=== PATIENT | female | born 1960 | race Caucasian/White ===

== ENCOUNTER → 2023-10-17 | Outpatient (CLI) | payer BC ==
[2023-10-17 15:00] VITALS: BP 98/64; PULSE 58; RESP 16; TEMP 98
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
== END ==
LOC: WWCWWP 14:29
PROVIDERS: ATTEND Obstetrics & Gynecology
DX: Z12.31 Encounter for screening mammogram for malignant neoplasm of breast (principal); Z78.0 Asymptomatic menopausal state; N94.10 Unspecified dyspareunia
CPT/HCPCS: 77063; 77067

== ENCOUNTER → 2023-10-18 | Outpatient (CLI) | payer BC ==
--- NOTE | 2023-10-19 10:25 | BD ---
EXAMINATION TYPE: Axial Bone Density DATE OF EXAM: 10/18/2023 CLINICAL HISTORY: 63 years old Female. ICD-10 CODE: Z78.0 ASYMPTOMATIC MENOPAUSAL STATE Height: 64" Weight: 121.4lbs FRAX RISK QUESTIONS: Alcohol (3 or more units per day): No Family History (Parent hip fracture): No Glucocorticoids (More than 3mos): No (Ex: prednisone, prednisolone, methylprednisolone, dexamethasone, and hydrocortisone). History of Fracture in Adulthood: Yes Secondary Osteoporosis: 1. Type 1 Diabetes: No 2. Hyperthyroidism: No 3. Menopause before 45: No 4. Malnutrition: No 5. Chronic liver disease: No Rheumatoid Arthritis: Yes Current Tobacco Use: No RISK FACTORS HISTORY OF: Hip Fracture (Right/Left): No Spine Fracture: No History of Wrist Fracture: Yes When: Right, several years Surgery to Spine/Hip(right/left)/Wrist (right/left): No MEDICATIONS: Thyroid Medications: No Osteoporosis Medications: No EXAM MEASUREMENTS: Bone mineral densitometry was performed using the [employer] System. Bone mineral density as measured about the Lumbar spine is: ----- L1-L4(G/cm2): 1.015 T Score Values are as follows: ----- L1: -2.3 ----- L2: -1.9 ----- L3: -0.6 ----- L4: -1.0 ----- L1-L4: -1.4 Z Score Values are as follows: ----- L1: -0.4 ----- L2: -0.1 ----- L3: 1.2 ----- L4: 0.9 ----- L1-L4: 0.5 Baseline @MPH Bone mineral density about the R hip (g/cm2): 0.825 Bone mineral density about the L hip (g/cm2): 0.811 T Score values are as follows: -----R Neck: -1.6 -----L Neck: -1.6 -----R Total: -1.4 -----L Total: -1.6 Z Score values are as follows: -----R Neck: 0.0 -----L Neck: 0.0 -----R Total: -0.1 -----L Total: -0.2 Baseline @MPH FRAX%s: The graph provided illustrates a 10.5% chance for a major osteoporotic fx and a 1.3% chance f or the hips probability for fx in 10 years time. IMPRESSION: Osteopenia (T Score between -2.5 and -1). There is slightly increased risk of fracture and the patient may be considered for treatment. Re-Screen 2-5 years. NOTE: T-SCORE=SD OF THE YOUNG ADULT MEAN.
== END | disposition home or self-care (01) ==
LOC: RADBDWWP 14:21
PROVIDERS: ATTEND Obstetrics & Gynecology
DX: M85.89 Other specified disorders of bone density and structure, multiple sites (principal); Z78.0 Asymptomatic menopausal state
CPT/HCPCS: 77080

== ENCOUNTER → 2023-10-25 | Outpatient (CLI) | payer BC ==
--- NOTE | 2023-10-25 15:07 | MM ---
Reason for Exam: Additional evaluation requested from abnormal screening. Last screening mammogram was performed less than 1 month ago. Patient History: Menarche at age 15. First Full-Term at age 38. Late child-bearing (after 30). Postmenopausal. Patient has history of breast feeding. Currently using Estrogen and Progesterone. Maternal aunt had breast cancer. Maternal aunt had breast cancer. Risk Values: Bonnie 5 year model risk: 2.0%. NCI Lifetime model risk: 8.1%. Prior Study Comparison: 10/17/2023 Bilateral MG 3D screening mammo w/cad, [facility]. Tissue Density: The breasts are extremely dense, which lowers the sensitivity of mammography. Findings: Analyzed By CAD. There is an area in the left breast lateral aspect approximately 2 cm from the nipple measuring 18 mm. In the right breast is felt to resolve on spot compression imaging. Overall Assessment: Incomplete: need additional imaging evaluation, BI-RAD 0 Management: Diagnostic Breast Ultrasound of the left breast. Results were given to the patient verbally at the time of exam. Patient should continue monthly self-breast exams. A clinical breast exam by your physician is recommended on an annual basis. This exam should not preclude additional follow-up of suspicious palpable abnormalities. Note on Bonnie scores and lifetime risk: 1. A Bonnie score greater than 3% is considered moderate risk. If this is the case, consider specialist referral to assess eligibility for a risk reducing agent. 2. If overall lifetime risk for the development of breast cancer is 20% or higher, the patient may qualify for future screening with alternating mammogram and breast MRI. Electronically signed and approved by: Jose Ruiz DO
--- NOTE | 2023-10-25 15:09 | USB ---
Reason for Exam: Additional evaluation requested from prior study. Patient History: Menarche at age 15. First Full-Term at age 38. Late child-bearing (after 30). Postmenopausal. Patient has history of breast feeding. Currently using Estrogen and Progesterone. Maternal aunt had breast cancer. Maternal aunt had breast cancer. Risk Values: Bonnie 5 year model risk: 2.0%. NCI Lifetime model risk: 8.1%. Technique: Method: Targeted. Prior Study Comparison: 10/17/2023 Bilateral MG 3D screening mammo w/cad, [facility]. Findings: The upper outer quadrant of the left breast, the axilla of the left breast and the retroareolar of the left breast were scanned. Technique utilized:US breast workup limited LT Image; Ultrasound imaging of: Area of concern, retroareolar region and axilla. Minimally complex appearing cyst at 2:00 2 cm from nipple measuring up to 7 mm. Overall Assessment: Benign, BI-RAD 2 Management: Screening Mammogram of both breasts in 1 year. A clinical breast exam by your physician is recommended on an annual basis and results should be correlated with mammographic findings. This exam should not preclude additional follow-up of suspicious palpable abnormalities. Results were given to the patient verbally at the time of exam. Electronically signed and approved by: Jose Ruiz DO
== END | disposition home or self-care (01) ==
LOC: RADMAMWWP 13:56
PROVIDERS: ATTEND Obstetrics & Gynecology
DX: N60.02 Solitary cyst of left breast (principal); R92.343 Mammographic extreme density, bilateral breasts; Z80.3 Family history of malignant neoplasm of breast; Z78.0 Asymptomatic menopausal state
CPT/HCPCS: 77062; 77066

== ENCOUNTER → 2024-03-20 | Outpatient (CLI) | payer BC ==
--- NOTE | 2024-03-20 13:54 | XR ---
EXAMINATION TYPE: XR thoracic spine complete DATE OF EXAM: 03/20/2024 1:49 PM INDICATION: Patient age:Female; 63 years old; Reason for study: M54.6 PAIN IN THORACIC SPINE M47.816 SPONDYLOSIS W; [facility]. COMPARISON: Lumbar spine radiograph of the same date TECHNIQUE: 3 views of the thoracic spine in frontal, lateral, and swimmer's projections. FINDINGS: No evidence of acute fracture. There is no evidence of loss of vertebral body height. Multilevel dis c space with endplate sclerosis and anterolateral ecchymosis. Levocurvature of the upper thoracic spi ne. IMPRESSION: 1. No acute osseous pathology. 2. Mild multilevel degenerative disc disease. 3. Levocurvature of the upper thoracic spine. [facility], , 03/20/2024 1:52 PM
--- NOTE | 2024-03-20 13:57 | XR ---
EXAMINATION TYPE: XR lumbar spine with bend/flex DATE OF EXAM: 03/20/2024 1:49 PM INDICATION: Patient age:Female; 63 years old; Reason for study: M54.6 PAIN IN THORACIC SPINE M47.816 SPONDYLOSIS W; [facility]. COMPARISON: This expiratory radiograph of the same date. TECHNIQUE: Frontal, lateral, coned in L5-S1 lateral, bilateral oblique, flexion, and extension views of the lumbar spine were obtained. FINDINGS: There are 5 lumbar type vertebral bodies identified. No evidence of any acute osseous patho logy. No evidence of loss of vertebral body height is seen. No spondylolisthesis. Straightening of t he normal lumbar lordosis does not significantly change on extension and flexion views involving the lower lumbar spine. Multilevel disc space with endplate screw seen across right ptosis. Multilevel fa cet arthropathy of the lower lumbar spine. IMPRESSION: 1. No acute process. 2. [id number] multilevel degenerative disc disease. [facility], , 03/20/2024 1:55 PM
== END | disposition home or self-care (01) ==
LOC: RADXRMAIN 13:13
PROVIDERS: ATTEND Internal Medicine
DX: M47.816 Spondylosis without myelopathy or radiculopathy, lumbar region (principal); M51.36 Other intervertebral disc degeneration, lumbar region; M51.34 Other intervertebral disc degeneration, thoracic region; M41.84 Other forms of scoliosis, thoracic region
CPT/HCPCS: 72072; 72114